=== PATIENT | male | born 1995 | race African-American/Black ===

== ENCOUNTER 2018-02-24 09:32 | Emergency (ER) | payer OTHER, SELFPAY ==
[2018-02-24 09:38] VITALS: BP 145/68; PULSE 94; RESP 20; TEMP 36.9; O2SAT 100
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
[2018-02-24 12:29] VITALS: BP 119/59; PULSE 71; RESP 14; O2SAT 96
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
[2018-02-24 13:00] VITALS: BP 129/79; PULSE 68; RESP 20; O2SAT 99
[2018-02-24 13:32] VITALS: BP 128/62; PULSE 72; RESP 18; O2SAT 99
== END 2018-02-24 13:32 | disposition home or self-care (01) ==
PROVIDERS: Emergency Provider Nurse Practitioner Family
DX: S20.211A Contusion of right front wall of thorax, initial encounter (principal); V43.52XA Car driver injured in collision with other type car in traffic accident, initial encounter
CPT/HCPCS: 71101; 99283